=== PATIENT | female | born 1950 | race Two or more races ===

== ENCOUNTER 2018-01-17 12:52 | Emergency (ER) | payer OTHER ==
[~2018-01-17] VITALS: Ht 162.6 cm; Wt 72.1 kg
[2018-01-17 13:02] VITALS: BP 127/78
[2018-01-17] MEDS ORDERED: KETOROLAC TROMETH 60MG/2ML VIAL IM ONE (14:45)
== END 2018-01-17 15:20 | disposition home or self-care (01) ==
LOC: ER 13:02
DX: S39.012A Strain of muscle, fascia and tendon of lower back, initial encounter (principal); M47.896 Other spondylosis, lumbar region; X50.0XXA Overexertion from strenuous movement or load, initial encounter; Y93.89 Activity, other specified; Y99.8 Other external cause status; Y92.89 Other specified places as the place of occurrence of the external cause
CPT/HCPCS: 72100; 96372; 99284; J1885